=== PATIENT | male | born 1950 ===

== ENCOUNTER 2023-09-12 01:48 | Outpatient (CLI) | payer MEDICARE, BC, SELFPAY ==
[2023-09-15 13:21] LABS: PSA, Ultrasensitive <0.01 ng/mL (<= 6.5)
[2023-09-16 11:36] LABS: Testosterone, Total 9.4 ng/dL (240-950)
== END 2023-09-12 01:49 | disposition home or self-care (01) ==
PROVIDERS: Visit Provider Radiology Radiation Oncology
DX: C61 Malignant neoplasm of prostate (principal)
CPT/HCPCS: 36415; 84153; 84403

== ENCOUNTER 2023-12-30 05:15 | Outpatient (CLI) | payer MEDICARE, BC, SELFPAY ==
[2023-12-31 19:04] LABS: PSA, Ultrasensitive <0.01 ng/mL (<= 6.5)
[2024-01-04 16:42] LABS: Testosterone, Total 456 ng/dL (240-950)
== END 2023-12-30 05:16 | disposition home or self-care (01) ==
LOC: LBO 05:15
PROVIDERS: Visit Provider Radiology Radiation Oncology
DX: C61 Malignant neoplasm of prostate (principal)
CPT/HCPCS: 36415; 84153; 84403

== ENCOUNTER 2024-07-19 01:55 | Outpatient (CLI) | payer MEDICARE, BC, SELFPAY ==
[2024-07-21 13:29] LABS: PSA, Ultrasensitive <0.01 ng/mL (<= 6.5)
[2024-07-22 15:39] LABS: Testosterone, Total 368 ng/dL (240-950)
== END 2024-07-19 01:56 | disposition home or self-care (01) ==
PROVIDERS: Colon & Rectal Surgery; Visit Provider Nurse Practitioner
DX: C61 Malignant neoplasm of prostate (principal)
CPT/HCPCS: 36415; 84153; 84403

== ENCOUNTER 2025-01-19 04:25 | Outpatient (CLI) | payer MEDICARE, BC, SELFPAY ==
[2025-01-22 09:44] LABS: PSA, Ultrasensitive <0.01 ng/mL (<= 6.5)
== END 2025-01-19 04:26 | disposition home or self-care (01) ==
PROVIDERS: Colon & Rectal Surgery; Visit Provider Physician Assistant
DX: C61 Malignant neoplasm of prostate (principal)
CPT/HCPCS: 36415; 84153

== ENCOUNTER 2025-07-07 04:20 | Outpatient (CLI) | payer MEDICARE, BC, SELFPAY | END 2025-07-07 04:21 | disposition home or self-care (01) | LOC: LBO 04:20 | PROVIDERS: Visit Provider Physician Assistant | DX: C61 Malignant neoplasm of prostate (principal) | CPT/HCPCS: 36415; 84153 ==